=== PATIENT | male | born 1950 | race Caucasian/White ===

== ENCOUNTER 2017-11-13 11:43 | Inpatient (IN) | payer OTHER ==
[~2017-11-13] VITALS: Ht 175.3 cm; Wt 89.8 kg
[2017-11-13] MEDS ORDERED: DSS100 PO (12:06)
[2017-11-13] MEDS ORDERED: CALC25 PO (12:06)
[2017-11-13] MEDS ORDERED: GLIM2 PO (12:06)
[2017-11-13] MEDS ORDERED: LISI-662 PO (12:06)
[2017-11-13] MEDS ORDERED: TAMS0.4C32 PO (12:06)
[2017-11-13] MEDS ORDERED: FERR-89 PO (12:06)
[2017-11-13] MEDS ORDERED: CLON.2 PO (12:06)
[2017-11-13] MEDS ORDERED: CARV12 PO (12:06)
[2017-11-13] MEDS ORDERED: FURO40 PO (12:06)
[2017-11-13] MEDS ORDERED: SODI650T PO (12:06)
[2017-11-13] MEDS ORDERED: MINO2.5 PO (12:06)
[2017-11-13 12:24] LABS: BASOPHILS % (AUTO) 1.1 % (0.0-2.0); EOSINOPHILS % (AUTO) 1.9 % (1.0-6.0); HEMATOCRIT 34.2 % (41-53); HEMOGLOBIN 11.3 g/dL (13.5-17.5); LYMPHOCYTES # (AUTO) 1.2 K/uL (1.0-4.8); LYMPHOCYTES % (AUTO) 20.5 % (22.0-44.0); MEAN CORPUSCULAR HEMOGLOBIN 30.7 pg (26.0-34.0); MEAN CORPUSCULAR VOLUME 93 fL (80-100); MONOCYTES # (AUTO) 0.5 K/uL (0.1-1.0); MONOCYTES % (AUTO) 8.4 % (2.0-9.0); NEUTROPHILS % (AUTO) 68.1 % (40.0-70.0); PLATELET COUNT (AUTO) 170 K/uL (150-450); RED BLOOD CELL COUNT(AUTO) 3.68 MIL/uL (4.50-5.90)
[2017-11-13 12:34] LABS: PROTHROMBIN TIME 10.9 SEC (9.4-11.6)
[2017-11-13 12:45] LABS: CALCIUM, TOTAL 8.5 mg/dL (8.8-10.5); CREATININE 5.21 mg/dL (0.60-1.30); POTASSIUM 5.6 mmol/L (3.5-5.1)
[2017-11-13 12:51] LABS: ALBUMIN 3.6 g/dL (3.4-5.0); BILIRUBIN,TOTAL 0.6 mg/dL (0.1-1.0); TOTAL PROTEIN, SERUM 6.4 g/dL (6.4-8.2)
[2017-11-13] MEDS ORDERED: HydrALAZINE HCL 20 MG/ML VIAL IVP ONE (13:15)
[2017-11-13] MEDS ORDERED: LABETALOL HCL 5 MG/ML 20 ML VIAL IVP ONE ×2 (13:15→14:00)
[2017-11-13 13:34] LABS: AMPHET/METH SCREEN,URINE NEGATIVE (NEGATIVE); APPEARANCE,URINE CLEAR (CLEAR); BARBITURATE SCREEN, URINE NEGATIVE (NEGATIVE); BENZODIAZEPINES SCREEN,URINE NEGATIVE (NEGATIVE); BILIRUBIN,URINE NEGATIVE (NEGATIVE); CANNABINOID SCREEN,URINE NEGATIVE (NEGATIVE); COCAINE SCREEN,URINE NEGATIVE (NEGATIVE); GLUCOSE, URINE (UA) NEGATIVE (NEGATIVE); KETONES,URINE TRACE mg/dL (NEGATIVE); LEUKOCYTE ESTERASE ,URINE NEGATIVE (NEGATIVE); METHADONE SCREEN, URINE NEGATIVE (NEGATIVE); NITRATE,URINE NEGATIVE (NEGATIVE); OCCULT BLOOD,URINE TRACE (NEGATIVE); OPIATE SCREEN,URINE NEGATIVE (NEGATIVE); PH,URINE 6.5 (5.0-8.0); PHENCYCLIDINE SCREEN,URINE NEGATIVE (NEGATIVE); PROTEIN,URINE SEE CONFIRM (NEGATIVE); UROBILINOGEN,URINE 0.2 mg/dL (<=1.0)
[2017-11-13 13:52] LABS: SULFOSALICYLIC ACID,URINE 3+ (Negative)
[2017-11-13 13:54] LABS: BACTERIA,URINE None Seen /HPF (None Seen); RBC,URINE 0-2 /HPF (0-2)
[2017-11-13] MEDS ORDERED: FUROSEMIDE 40 MG/4 ML VIAL IVP ONE (14:00)
[2017-11-13 15:10] VITALS: BP 162/121
[2017-11-13 17:20] VITALS: BP 180/110
[2017-11-13] MEDS ORDERED: PNEUMOCOCCAL VACCINE POLYVALENT 0.5 ML VIAL [PPSV23] IM ONE (18:00)
[2017-11-13] MEDS ORDERED: ACETAMINOPHEN 325 MG TABLET PO PRN (19:15)
[2017-11-13] MEDS ORDERED: ZOLPIDEM TARTRATE 10 MG TABLET PO PRN (19:15)
[2017-11-13] MEDS ORDERED: IPRATROPIUM BROMIDE 0.5 MG/2.5 ML NEB SOLUTION NEB PRN (19:15)
[2017-11-13] MEDS ORDERED: MORPHINE SULFATE 2 MG/ML SYRINGE IVP PRN (19:15)
[2017-11-13] MEDS ORDERED: ONDANSETRON HCL 4 MG/2 ML VIAL IVP PRN (19:15)
[2017-11-13] MEDS ORDERED: MAGNESIUM HYDROXIDE SUSPENSION 30 ML UDCUP PO PRN (19:15)
[2017-11-13 20:00] VITALS: BP 174/120
[2017-11-13] MEDS: DOCUSATE SODIUM 100 MG CAPSULE PO SCH (20:22)
[2017-11-13] MEDS: MINOXIDIL 2.5 MG TABLET PO SCH (20:22)
[2017-11-13] MEDS: SODIUM BICARBONATE 650 MG TABLET PO SCH (20:22)
[2017-11-13] MEDS: CARVEDILOL 25 MG TABLET PO SCH (20:22)
[2017-11-13] MEDS: TAMSULOSIN HCL 0.4 MG CAPSULE PO SCH (20:22)
[2017-11-13] MEDS: BUMETANIDE 0.25 MG/ML 10 ML VIAL IVP SCH (20:23)
[2017-11-13] MEDS ORDERED: FUROSEMIDE 40 MG TABLET PO SCH (21:00)
[2017-11-13 21:30] VITALS: BP 148/116
[2017-11-13 22:58] VITALS: BP 160/120
[2017-11-13] MEDS: HydrALAZINE HCL 20 MG/ML VIAL IVP PRN (23:06)
[2017-11-13 23:25] VITALS: BP 140/110
[2017-11-14] VITALS (7 sets, daily range): BP systolic 130–160; BP diastolic 88–120
[2017-11-14] MEDS: DILTIAZEM HCL 30 MG TABLET PO SCH ×2 (02:08→06:03)
[2017-11-14] MEDS: DOCUSATE SODIUM 100 MG CAPSULE PO SCH ×2 (08:11→20:56)
[2017-11-14] MEDS: CALCITRIOL 0.25 MCG CAPSULE PO SCH (08:12)
[2017-11-14] MEDS: CARVEDILOL 25 MG TABLET PO SCH (08:12)
[2017-11-14] MEDS: SODIUM BICARBONATE 650 MG TABLET PO SCH ×3 (08:12→20:56)
[2017-11-14] MEDS: PANTOPRAZOLE SODIUM 40 MG/VIAL IVP SCH (08:12)
[2017-11-14] MEDS: GLIMEPIRIDE 2 MG TABLET PO SCH (08:12)
[2017-11-14] MEDS: MINOXIDIL 2.5 MG TABLET PO SCH ×2 (08:12→20:56)
[2017-11-14] MEDS ORDERED: LISINOPRIL 20 MG TABLET PO SCH (09:00)
[2017-11-14] MEDS ORDERED: DIGOXIN 250 MCG/ML 2 ML AMP IVP SCH (09:00)
[2017-11-14] MEDS ORDERED: FERROUS SULFATE 325 MG EC TABLET PO SCH (09:00)
[2017-11-14] MEDS ORDERED: SODIUM POLYSTYRENE SULFONATE 15 GM/60 ML SUSPENSION BOTTLE PO ONE (09:15)
[2017-11-14] MEDS ORDERED: LABETALOL HCL 5 MG/ML 20 ML VIAL IVP ONE ×2 (09:30→14:15)
[2017-11-14] MEDS ORDERED: APIXABAN 2.5 MG TABLET PO SCH (09:30)
[2017-11-14 09:34] LABS: BASOPHILS % (AUTO) 1.1 % (0.0-2.0); EOSINOPHILS % (AUTO) 2.7 % (1.0-6.0); HEMATOCRIT 32.4 % (41-53); HEMOGLOBIN 11.1 g/dL (13.5-17.5); LYMPHOCYTES # (AUTO) 0.8 K/uL (1.0-4.8); LYMPHOCYTES % (AUTO) 19.1 % (22.0-44.0); MEAN CORPUSCULAR HEMOGLOBIN 31.8 pg (26.0-34.0); MEAN CORPUSCULAR HGB CONC 34.2 G/dL (31.0-37.0); MEAN CORPUSCULAR VOLUME 93 fL (80-100); MONOCYTES # (AUTO) 0.3 K/uL (0.1-1.0); NEUTROPHILS % (AUTO) 70.1 % (40.0-70.0); PLATELET COUNT (AUTO) 150 K/uL (150-450); RED BLOOD CELL COUNT(AUTO) 3.49 MIL/uL (4.50-5.90); RED CELL DISTRIBUTION WIDTH 15.3 % (11.5-14.5)
[2017-11-14 09:40] LABS: CALCIUM, TOTAL 8.3 mg/dL (8.8-10.5); CREATININE 5.24 mg/dL (0.60-1.30); MAGNESIUM 2.4 mg/dL (1.80-2.40); POTASSIUM 5.5 mmol/L (3.5-5.1)
[2017-11-14] MEDS: BUMETANIDE 0.25 MG/ML 10 ML VIAL IVP SCH ×2 (09:53→21:20)
[2017-11-14] MEDS ORDERED: *CLINICAL-WARFARIN SODIUM DOSING CLINICAL ONE (10:15)
[2017-11-14] MEDS ORDERED: DIGOXIN 250 MCG/ML 2 ML AMP IVP ONE ×2 (10:30→14:15)
[2017-11-14] MEDS ORDERED: WARFARIN SODIUM-INR 2.0-3.0-RX DOSING PER PROTOCOL PO PRN (10:45)
[2017-11-14] MEDS: LABETALOL HCL 200 MG TABLET PO SCH ×4 (10:55→20:56)
[2017-11-14] MEDS ORDERED: DEXTROSE 50%-WATER 25 GM/50 ML SYRINGE IVP PRN (13:00)
[2017-11-14] MEDS ORDERED: CARV25 PO (13:07)
[2017-11-14] MEDS ORDERED: BUMETANIDE 0.25 MG/ML 4 ML VIAL IVP ONE (15:45)
[2017-11-14] MEDS ORDERED: WARFARIN SODIUM 5 MG TABLET PO SCH (17:00)
[2017-11-14 19:38] LABS: GLUCOMETER DEV NAME(LOC) 5S 1M; GLUCOSE,POINT OF CARE 75 MG/DL (70-110)
[2017-11-14] MEDS: TAMSULOSIN HCL 0.4 MG CAPSULE PO SCH (20:56)
[2017-11-14] MEDS: INSULIN ASPART 100 UNITS/ML - NON-FORMULARY SQ PRN (20:58)
[2017-11-15 00:23] VITALS: BP 120/56
[2017-11-15 00:58] LABS: GLUCOMETER DEV NAME(LOC) 5N 1N; GLUCOSE,POINT OF CARE 156 MG/DL (70-110)
[2017-11-15 05:20] VITALS: BP 112/80
[2017-11-15 06:25] VITALS: BP 110/85
[2017-11-15 06:44] LABS: BASOPHILS % (AUTO) 0.7 % (0.0-2.0); EOSINOPHILS % (AUTO) 3.3 % (1.0-6.0); HEMATOCRIT 27.9 % (41-53); HEMOGLOBIN 9.6 g/dL (13.5-17.5); LYMPHOCYTES # (AUTO) 1.1 K/uL (1.0-4.8); LYMPHOCYTES % (AUTO) 22.7 % (22.0-44.0); MEAN CORPUSCULAR HEMOGLOBIN 31.8 pg (26.0-34.0); MEAN CORPUSCULAR HGB CONC 34.5 G/dL (31.0-37.0); MEAN CORPUSCULAR VOLUME 92 fL (80-100); MONOCYTES # (AUTO) 0.5 K/uL (0.1-1.0); MONOCYTES % (AUTO) 10.3 % (2.0-9.0); PLATELET COUNT (AUTO) 142 K/uL (150-450); RED BLOOD CELL COUNT(AUTO) 3.03 MIL/uL (4.50-5.90); RED CELL DISTRIBUTION WIDTH 14.8 % (11.5-14.5)
[2017-11-15 06:51] LABS: CALCIUM, TOTAL 7.9 mg/dL (8.8-10.5); CREATININE 5.09 mg/dL (0.60-1.30); MAGNESIUM 2.2 mg/dL (1.80-2.40); POTASSIUM 4.5 mmol/L (3.5-5.1)
[2017-11-15 06:52] LABS: ALBUMIN 2.9 g/dL (3.4-5.0); BILIRUBIN,TOTAL 0.4 mg/dL (0.1-1.0); TOTAL PROTEIN, SERUM 5.2 g/dL (6.4-8.2)
[2017-11-15 07:26] LABS: INR 1.1 (0.9-1.1)
[2017-11-15 07:39] VITALS: BP 125/80
[2017-11-15 07:53] LABS: GLUCOMETER DEV NAME(LOC) 5S 1M; GLUCOSE,POINT OF CARE 71 MG/DL (70-110)
[2017-11-15] MEDS: SODIUM BICARBONATE 650 MG TABLET PO SCH ×3 (08:35→22:21)
[2017-11-15] MEDS: GLIMEPIRIDE 2 MG TABLET PO SCH (08:36)
[2017-11-15] MEDS: CALCITRIOL 0.25 MCG CAPSULE PO SCH (08:37)
[2017-11-15] MEDS: LABETALOL HCL 200 MG TABLET PO SCH ×4 (08:38→22:21)
[2017-11-15] MEDS: MINOXIDIL 2.5 MG TABLET PO SCH ×2 (08:38→22:21)
[2017-11-15] MEDS: FERROUS SULFATE 325 MG EC TABLET PO SCH (08:39)
[2017-11-15] MEDS: PANTOPRAZOLE SODIUM 40 MG/VIAL IVP SCH (08:39)
[2017-11-15] MEDS: DOCUSATE SODIUM 100 MG CAPSULE PO SCH ×2 (08:44→22:21)
[2017-11-15] MEDS: BUMETANIDE 0.25 MG/ML 10 ML VIAL IVP SCH ×2 (08:47→23:32)
[2017-11-15] MEDS ORDERED: DIGOXIN 250 MCG/ML 2 ML AMP IVP ONE (09:00)
[2017-11-15 12:37] LABS: GLUCOMETER DEV NAME(LOC) 5S 1M; GLUCOSE,POINT OF CARE 204 MG/DL (70-110)
[2017-11-15] MEDS ORDERED: WARFARIN SODIUM 5 MG TABLET PO SCH (17:00)
[2017-11-15 19:47] VITALS: BP 125/82
[2017-11-15 21:00] VITALS: BP 132/74
[2017-11-15] MEDS ORDERED: ZOLPIDEM TARTRATE 5 MG TABLET PO PRN (22:15)
[2017-11-15] MEDS: TAMSULOSIN HCL 0.4 MG CAPSULE PO SCH (22:21)
[2017-11-15 22:32] LABS: GLUCOSE,POINT OF CARE 142 MG/DL (70-110)
[2017-11-16] VITALS (8 sets, daily range): BP systolic 97–119; BP diastolic 49–76
[2017-11-16 05:18] LABS: INR 1.1 (0.9-1.1)
[2017-11-16 08:08] LABS: GLUCOMETER DEV NAME(LOC) 5S 1M; GLUCOSE,POINT OF CARE 118 MG/DL (70-110)
[2017-11-16] MEDS: PANTOPRAZOLE SODIUM 40 MG/VIAL IVP SCH (08:09)
[2017-11-16] MEDS: LABETALOL HCL 200 MG TABLET PO SCH ×4 (08:10→23:00)
[2017-11-16] MEDS: DOCUSATE SODIUM 100 MG CAPSULE PO SCH ×2 (08:10→21:04)
[2017-11-16] MEDS: CALCITRIOL 0.25 MCG CAPSULE PO SCH (08:10)
[2017-11-16] MEDS: FERROUS SULFATE 325 MG EC TABLET PO SCH (08:10)
[2017-11-16] MEDS: SODIUM BICARBONATE 650 MG TABLET PO SCH ×3 (08:11→21:04)
[2017-11-16] MEDS: MINOXIDIL 2.5 MG TABLET PO SCH ×2 (08:11→23:00)
[2017-11-16 08:17] LABS: GLUCOSE,POINT OF CARE 96 MG/DL (70-110)
[2017-11-16] MEDS: BUMETANIDE 0.25 MG/ML 10 ML VIAL IVP SCH (09:58)
[2017-11-16] MEDS ORDERED: HEPARIN SODIUM,PORCINE 1,000 UNITS/ML VIAL ONE (11:24)
[2017-11-16] MEDS: GLIMEPIRIDE 2 MG TABLET PO SCH (12:36)
[2017-11-16] MEDS ORDERED: SODIUM CHLORIDE 0.9% 1,000 ML IV ONE (12:40)
[2017-11-16 15:23] LABS: GLUCOSE,POINT OF CARE 167 MG/DL (70-110)
[2017-11-16] MEDS: AMIODARONE HCL 200 MG TABLET PO SCH ×2 (15:25→21:04)
[2017-11-16] MEDS: INSULIN ASPART 100 UNITS/ML - NON-FORMULARY SQ PRN (15:27)
[2017-11-16] MEDS ORDERED: ALBUMIN HUMAN 25%-12.5GM/50ML IV BOTTLE IV ONE (17:07)
[2017-11-16] MEDS ORDERED: MANNITOL 25%-12.5 GM/50 ML VIAL IVP ONE (17:07)
[2017-11-16] MEDS ORDERED: HEPARIN SODIUM,PORCINE 1,000 UNITS/ML VIAL IVP ONE (17:07)
[2017-11-16 17:59] LABS: GLUCOSE,POINT OF CARE 111 MG/DL (70-110)
[2017-11-16] MEDS ORDERED: WARFARIN SODIUM 5 MG TABLET PO ONE (21:00)
[2017-11-16] MEDS: TAMSULOSIN HCL 0.4 MG CAPSULE PO SCH (21:04)
[2017-11-17 04:23] VITALS: BP 102/59
[2017-11-17] MEDS ORDERED: SODIUM CHLORIDE 0.9% 1,000 ML IV ONE ×2 (06:45)
[2017-11-17 07:07] LABS: INR 1.1 (0.9-1.1); PROTHROMBIN TIME 11.1 SEC (9.4-11.6)
[2017-11-17 07:13] LABS: CALCIUM, TOTAL 7.7 mg/dL (8.8-10.5); CREATININE 4.44 mg/dL (0.60-1.30); POTASSIUM 4.1 mmol/L (3.5-5.1)
[2017-11-17 07:22] LABS: BASOPHILS % (AUTO) 0.7 % (0.0-2.0); EOSINOPHILS % (AUTO) 3.2 % (1.0-6.0); HEMATOCRIT 27.2 % (41-53); HEMOGLOBIN 9.3 g/dL (13.5-17.5); LYMPHOCYTES # (AUTO) 0.9 K/uL (1.0-4.8); LYMPHOCYTES % (AUTO) 16.6 % (22.0-44.0); MEAN CORPUSCULAR HEMOGLOBIN 31.4 pg (26.0-34.0); MEAN CORPUSCULAR HGB CONC 34.2 G/dL (31.0-37.0); MEAN CORPUSCULAR VOLUME 92 fL (80-100); MONOCYTES # (AUTO) 0.6 K/uL (0.1-1.0); MONOCYTES % (AUTO) 11.6 % (2.0-9.0); NEUTROPHILS # (AUTO) 3.6 K/uL (1.8-7.7); NEUTROPHILS % (AUTO) 67.9 % (40.0-70.0); PLATELET COUNT (AUTO) 127 K/uL (150-450); RED BLOOD CELL COUNT(AUTO) 2.95 MIL/uL (4.50-5.90); RED CELL DISTRIBUTION WIDTH 14.6 % (11.5-14.5)
[2017-11-17 07:41] VITALS: BP 138/68
[2017-11-17] MEDS: EPOETIN ALFA 10,000 UNITS/ML VIAL SQ SCH (09:00)
[2017-11-17] MEDS: LISINOPRIL 10 MG TABLET PO SCH (09:00)
[2017-11-17 11:22] VITALS: BP 122/83
[2017-11-17] MEDS: FERROUS SULFATE 325 MG EC TABLET PO SCH (11:41)
[2017-11-17] MEDS: CALCITRIOL 0.25 MCG CAPSULE PO SCH (11:41)
[2017-11-17] MEDS: SODIUM BICARBONATE 650 MG TABLET PO SCH ×3 (11:42→20:34)
[2017-11-17] MEDS: CARVEDILOL 25 MG TABLET PO SCH ×2 (11:42→20:34)
[2017-11-17] MEDS: PANTOPRAZOLE SODIUM 40 MG/VIAL IVP SCH (11:43)
[2017-11-17] MEDS: DOCUSATE SODIUM 100 MG CAPSULE PO SCH ×2 (11:43→20:34)
[2017-11-17] MEDS: MINOXIDIL 2.5 MG TABLET PO SCH ×2 (11:44→20:34)
[2017-11-17] MEDS: AMIODARONE HCL 200 MG TABLET PO SCH ×2 (11:44→20:45)
[2017-11-17 14:58] LABS: GLUCOMETER DEV NAME(LOC) 5N 2S; GLUCOSE,POINT OF CARE 55 MG/DL (70-110)
[2017-11-17 14:58] LABS: GLUCOMETER DEV NAME(LOC) 5N 2S; GLUCOSE,POINT OF CARE 113 MG/DL (70-110)
[2017-11-17 14:58] LABS: GLUCOMETER DEV NAME(LOC) 5N 2S; GLUCOSE,POINT OF CARE 94 MG/DL (70-110)
[2017-11-17 15:00] VITALS: BP 94/56
[2017-11-17] MEDS ORDERED: HEPARIN SODIUM,PORCINE 1,000 UNITS/ML VIAL ONE ×2 (16:44→17:20)
[2017-11-17] MEDS ORDERED: WARFARIN SODIUM 7.5 MG TABLET PO ONE (17:00)
[2017-11-17] MEDS ORDERED: MANNITOL 25%-12.5 GM/50 ML VIAL IVP ONE (17:17)
[2017-11-17] MEDS: INSULIN ASPART 100 UNITS/ML - NON-FORMULARY SQ PRN (18:24)
[2017-11-17 20:25] VITALS: BP 104/53
[2017-11-17] MEDS: TAMSULOSIN HCL 0.4 MG CAPSULE PO SCH (20:34)
[2017-11-18] VITALS (7 sets, daily range): BP systolic 99–113; BP diastolic 55–75
[2017-11-18 05:47] LABS: BASOPHILS % (AUTO) 0.6 % (0.0-2.0); EOSINOPHILS % (AUTO) 3.9 % (1.0-6.0); HEMATOCRIT 26.3 % (41-53); HEMOGLOBIN 9.4 g/dL (13.5-17.5); LYMPHOCYTES # (AUTO) 1.2 K/uL (1.0-4.8); MEAN CORPUSCULAR HEMOGLOBIN 32.8 pg (26.0-34.0); MEAN CORPUSCULAR HGB CONC 35.7 G/dL (31.0-37.0); MEAN CORPUSCULAR VOLUME 92 fL (80-100); MONOCYTES # (AUTO) 0.7 K/uL (0.1-1.0); NEUTROPHILS # (AUTO) 3.4 K/uL (1.8-7.7); NEUTROPHILS % (AUTO) 60.5 % (40.0-70.0); PLATELET COUNT (AUTO) 118 K/uL (150-450); RED BLOOD CELL COUNT(AUTO) 2.87 MIL/uL (4.50-5.90); RED CELL DISTRIBUTION WIDTH 14.9 % (11.5-14.5)
[2017-11-18 05:56] LABS: INR 1.1 (0.9-1.1); PROTHROMBIN TIME 11.9 SEC (9.4-11.6)
[2017-11-18 06:15] LABS: ALBUMIN 2.9 g/dL (3.4-5.0); BILIRUBIN,TOTAL 0.4 mg/dL (0.1-1.0); CALCIUM, TOTAL 7.7 mg/dL (8.8-10.5); CREATININE 4.11 mg/dL (0.60-1.30); MAGNESIUM 1.7 mg/dL (1.80-2.40); POTASSIUM 4.8 mmol/L (3.5-5.1); TOTAL PROTEIN, SERUM 5.3 g/dL (6.4-8.2)
[2017-11-18] MEDS ORDERED: HEPARIN SODIUM 1000 UNITS/NS 0 ML ONE (08:42)
[2017-11-18] MEDS ORDERED: LIDOCAINE HCL/PF 1% 30 ML VIAL ONE (08:43)
[2017-11-18] MEDS ORDERED: HEPARIN SODIUM,PORCINE 1,000 UNITS/ML 10 ML VIAL ONE (08:43)
[2017-11-18] MEDS: FERROUS SULFATE 325 MG EC TABLET PO SCH (11:54)
[2017-11-18] MEDS: AMIODARONE HCL 200 MG TABLET PO SCH ×2 (11:54→21:52)
[2017-11-18] MEDS: CARVEDILOL 25 MG TABLET PO SCH ×2 (11:55→21:52)
[2017-11-18] MEDS: PANTOPRAZOLE SODIUM 40 MG/VIAL IVP SCH (11:55)
[2017-11-18] MEDS: LISINOPRIL 10 MG TABLET PO SCH (11:55)
[2017-11-18] MEDS: DOCUSATE SODIUM 100 MG CAPSULE PO SCH ×2 (11:55→21:52)
[2017-11-18] MEDS: CALCITRIOL 0.25 MCG CAPSULE PO SCH (12:15)
[2017-11-18] MEDS ORDERED: WARFARIN SODIUM 7.5 MG TABLET PO ONE (17:00)
[2017-11-18] MEDS ORDERED: APIXABAN 5 MG TABLET PO SCH (21:00)
[2017-11-18] MEDS: TAMSULOSIN HCL 0.4 MG CAPSULE PO SCH (21:52)
[2017-11-19 04:12] VITALS: BP 110/52
[2017-11-19 06:52] LABS: BASOPHILS % (AUTO) 1.3 % (0.0-2.0); EOSINOPHILS % (AUTO) 5.3 % (1.0-6.0); HEMOGLOBIN 9.8 g/dL (13.5-17.5); LYMPHOCYTES # (AUTO) 1.3 K/uL (1.0-4.8); LYMPHOCYTES % (AUTO) 22.4 % (22.0-44.0); MEAN CORPUSCULAR HEMOGLOBIN 31.3 pg (26.0-34.0); MEAN CORPUSCULAR HGB CONC 33.9 G/dL (31.0-37.0); MEAN CORPUSCULAR VOLUME 92 fL (80-100); MONOCYTES # (AUTO) 0.7 K/uL (0.1-1.0); MONOCYTES % (AUTO) 12.7 % (2.0-9.0); NEUTROPHILS # (AUTO) 3.3 K/uL (1.8-7.7); NEUTROPHILS % (AUTO) 58.3 % (40.0-70.0); PLATELET COUNT (AUTO) 123 K/uL (150-450); RED BLOOD CELL COUNT(AUTO) 3.14 MIL/uL (4.50-5.90); RED CELL DISTRIBUTION WIDTH 14.8 % (11.5-14.5)
[2017-11-19 06:56] LABS: INR 1.2 (0.9-1.1); PROTHROMBIN TIME 12.9 SEC (9.4-11.6)
[2017-11-19 07:06] VITALS: BP 112/64
[2017-11-19 07:20] LABS: CREATININE 3.91 mg/dL (0.60-1.30); POTASSIUM 4.8 mmol/L (3.5-5.1)
[2017-11-19 07:21] LABS: ALBUMIN 2.9 g/dL (3.4-5.0); BILIRUBIN,TOTAL 0.3 mg/dL (0.1-1.0); CALCIUM, TOTAL 7.8 mg/dL (8.8-10.5); MAGNESIUM 1.8 mg/dL (1.80-2.40); TOTAL PROTEIN, SERUM 5.4 g/dL (6.4-8.2)
[2017-11-19] MEDS: CARVEDILOL 25 MG TABLET PO SCH ×2 (09:00→19:52)
[2017-11-19] MEDS: LISINOPRIL 10 MG TABLET PO SCH (09:00)
[2017-11-19] MEDS ORDERED: HEPARIN SODIUM,PORCINE 1,000 UNITS/ML 10 ML VIAL ONE (09:14)
[2017-11-19] MEDS ORDERED: HEPARIN SODIUM 1000 UNITS/NS 500 ML ONE (09:14)
[2017-11-19] MEDS ORDERED: LIDOCAINE HCL/PF 1% 30 ML VIAL ONE (09:14)
[2017-11-19] MEDS: DOCUSATE SODIUM 100 MG CAPSULE PO SCH ×2 (09:23→19:52)
[2017-11-19] MEDS: FERROUS SULFATE 325 MG EC TABLET PO SCH (09:24)
[2017-11-19] MEDS: CALCITRIOL 0.25 MCG CAPSULE PO SCH (09:24)
[2017-11-19] MEDS: AMIODARONE HCL 200 MG TABLET PO SCH ×2 (09:25→19:52)
[2017-11-19] MEDS: PANTOPRAZOLE SODIUM 40 MG/VIAL IVP SCH (09:26)
[2017-11-19] MEDS: EPOETIN ALFA 10,000 UNITS/ML VIAL SQ SCH (09:27)
[2017-11-19] MEDS ORDERED: MIDAZOLAM HCL 2 MG/2 ML VIAL ONE ×2 (09:33→10:45)
[2017-11-19] MEDS ORDERED: FentaNYL CITRATE-PF 100 MCG/2 ML VIAL ONE (09:33)
[2017-11-19] MEDS ORDERED: CeFAZolin 1 GM/DEXTROSE 50 ML IV ONE ×2 (09:43→10:10)
[2017-11-19] MEDS ORDERED: ONDANSETRON HCL 4 MG/2 ML VIAL ONE (10:25)
[2017-11-19] MEDS ORDERED: ONDANSETRON HCL 4 MG/2 ML VIAL IVP ONE (10:27)
[2017-11-19] MEDS ORDERED: MIDAZOLAM HCL 2 MG/2 ML VIAL IVP ONE (10:47)
[2017-11-19] MEDS ORDERED: FentaNYL CITRATE-PF 100 MCG/2 ML VIAL IVP ONE (10:47)
[2017-11-19 11:45] VITALS: BP 133/95
[2017-11-19] MEDS: HYDROCODONE/ACETAMINOPHEN 5-325 MG TABLET PO PRN ×2 (14:26→21:41)
[2017-11-19 15:18] VITALS: BP 139/73
[2017-11-19] MEDS: INSULIN ASPART 100 UNITS/ML - NON-FORMULARY SQ PRN ×2 (17:54→21:45)
[2017-11-19] MEDS ORDERED: HEPARIN SODIUM,PORCINE 1,000 UNITS/ML VIAL IVP ONE (18:19)
[2017-11-19 19:48] VITALS: BP 100/59
[2017-11-19] MEDS: TAMSULOSIN HCL 0.4 MG CAPSULE PO SCH (19:52)
[2017-11-19 23:57] VITALS: BP 103/68
[2017-11-20 04:27] VITALS: BP 111/69
[2017-11-20 06:41] LABS: INR 1.2 (0.9-1.1); PROTHROMBIN TIME 12.3 SEC (9.4-11.6)
[2017-11-20] MEDS ORDERED: SODIUM CHLORIDE 0.9% 1,000 ML IV ONE ×2 (06:59)
[2017-11-20 07:06] VITALS: BP 134/93
[2017-11-20] MEDS: DOCUSATE SODIUM 100 MG CAPSULE PO SCH ×2 (09:00→19:56)
[2017-11-20] MEDS ORDERED: APIXABAN 2.5 MG TABLET PO SCH ×2 (09:00)
[2017-11-20] MEDS: PANTOPRAZOLE SODIUM 40 MG/VIAL IVP SCH (09:14)
[2017-11-20] MEDS: CALCITRIOL 0.25 MCG CAPSULE PO SCH (09:14)
[2017-11-20] MEDS: FERROUS SULFATE 325 MG EC TABLET PO SCH (09:14)
[2017-11-20] MEDS: CARVEDILOL 25 MG TABLET PO SCH ×2 (09:17→19:56)
[2017-11-20] MEDS: AMIODARONE HCL 200 MG TABLET PO SCH ×2 (09:18→19:56)
[2017-11-20] MEDS: LISINOPRIL 10 MG TABLET PO SCH (10:21)
[2017-11-20] MEDS: APIXABAN 5 MG TABLET PO SCH ×2 (10:21→19:56)
[2017-11-20 11:42] VITALS: BP 159/95
[2017-11-20] MEDS: INSULIN ASPART 100 UNITS/ML - NON-FORMULARY SQ PRN ×2 (12:12→20:00)
[2017-11-20 15:08] LABS: GLUCOMETER DEV NAME(LOC) 5S 2N; GLUCOSE,POINT OF CARE 97 MG/DL (70-110)
[2017-11-20 15:08] LABS: GLUCOMETER DEV NAME(LOC) 5N 2S; GLUCOSE,POINT OF CARE 216 MG/DL (70-110)
[2017-11-20 15:08] LABS: GLUCOMETER DEV NAME(LOC) 5S 2N; GLUCOSE,POINT OF CARE 112 MG/DL (70-110)
[2017-11-20 15:08] LABS: GLUCOMETER DEV NAME(LOC) 5S 2N; GLUCOSE,POINT OF CARE 126 MG/DL (70-110)
[2017-11-20 15:09] LABS: GLUCOMETER DEV NAME(LOC) 5N 2S; GLUCOSE,POINT OF CARE 144 MG/DL (70-110)
[2017-11-20 15:09] LABS: GLUCOMETER DEV NAME(LOC) 5S 2N; GLUCOSE,POINT OF CARE 99 MG/DL (70-110)
[2017-11-20 15:09] LABS: GLUCOMETER DEV NAME(LOC) 5N 2S; GLUCOSE,POINT OF CARE 147 MG/DL (70-110)
[2017-11-20 15:09] LABS: GLUCOMETER DEV NAME(LOC) 5N 2S; GLUCOSE,POINT OF CARE 117 MG/DL (70-110)
[2017-11-20 15:09] LABS: GLUCOMETER DEV NAME(LOC) 5S 2N; GLUCOSE,POINT OF CARE 222 MG/DL (70-110)
[2017-11-20 15:09] LABS: GLUCOMETER DEV NAME(LOC) 5N 2S; GLUCOSE,POINT OF CARE 144 MG/DL (70-110)
[2017-11-20 15:09] LABS: GLUCOMETER DEV NAME(LOC) 5N 2S; GLUCOSE,POINT OF CARE 151 MG/DL (70-110)
[2017-11-20 15:09] LABS: GLUCOMETER DEV NAME(LOC) 5N 2S; GLUCOSE,POINT OF CARE 213 MG/DL (70-110)
[2017-11-20 15:09] LABS: GLUCOMETER DEV NAME(LOC) 5N 2S; GLUCOSE,POINT OF CARE 132 MG/DL (70-110)
[2017-11-20 15:09] LABS: GLUCOMETER DEV NAME(LOC) 5N 2S; GLUCOSE,POINT OF CARE 192 MG/DL (70-110)
[2017-11-20 16:00] VITALS: BP 124/73
[2017-11-20] MEDS ORDERED: IOVERSOL 350 MG/ML 100 ML VIAL ONE (16:06)
[2017-11-20 19:07] LABS: GLUCOMETER DEV NAME(LOC) 5N 2S; GLUCOSE,POINT OF CARE 137 MG/DL (70-110)
[2017-11-20 19:45] VITALS: BP 129/62
[2017-11-20] MEDS: TAMSULOSIN HCL 0.4 MG CAPSULE PO SCH (19:56)
[2017-11-20 23:14] VITALS: BP 124/78
[2017-11-21] MEDS: HYDROCODONE/ACETAMINOPHEN 5-325 MG TABLET PO PRN (02:12)
[2017-11-21 04:48] VITALS: BP 132/74
[2017-11-21 05:38] LABS: EOSINOPHILS % (AUTO) 4.3 % (1.0-6.0); HEMATOCRIT 29.3 % (41-53); LYMPHOCYTES # (AUTO) 1.5 K/uL (1.0-4.8); MEAN CORPUSCULAR HEMOGLOBIN 31.4 pg (26.0-34.0); MEAN CORPUSCULAR HGB CONC 34.2 G/dL (31.0-37.0); MEAN CORPUSCULAR VOLUME 92 fL (80-100); MONOCYTES # (AUTO) 0.6 K/uL (0.1-1.0); MONOCYTES % (AUTO) 9.9 % (2.0-9.0); NEUTROPHILS # (AUTO) 3.8 K/uL (1.8-7.7); NEUTROPHILS % (AUTO) 60.8 % (40.0-70.0); PLATELET COUNT (AUTO) 139 K/uL (150-450); RED BLOOD CELL COUNT(AUTO) 3.19 MIL/uL (4.50-5.90); RED CELL DISTRIBUTION WIDTH 14.5 % (11.5-14.5)
[2017-11-21 05:48] LABS: INR 1.1 (0.9-1.1); PROTHROMBIN TIME 11.9 SEC (9.4-11.6)
[2017-11-21 05:53] LABS: BILIRUBIN,TOTAL 0.3 mg/dL (0.1-1.0); CALCIUM, TOTAL 8.2 mg/dL (8.8-10.5); CREATININE 4.96 mg/dL (0.60-1.30); POTASSIUM 5.8 mmol/L (3.5-5.1); TOTAL PROTEIN, SERUM 5.5 g/dL (6.4-8.2)
[2017-11-21 06:59] VITALS: BP 124/65
[2017-11-21] MEDS: FERROUS SULFATE 325 MG EC TABLET PO SCH (08:30)
[2017-11-21] MEDS: DOCUSATE SODIUM 100 MG CAPSULE PO SCH ×2 (08:30→21:00)
[2017-11-21] MEDS: PANTOPRAZOLE SODIUM 40 MG/VIAL IVP SCH (08:30)
[2017-11-21] MEDS: APIXABAN 5 MG TABLET PO SCH (08:30)
[2017-11-21] MEDS: AMIODARONE HCL 200 MG TABLET PO SCH ×2 (08:30→21:00)
[2017-11-21] MEDS: CALCITRIOL 0.25 MCG CAPSULE PO SCH (08:31)
[2017-11-21] MEDS: EPOETIN ALFA 10,000 UNITS/ML VIAL SQ SCH (08:33)
[2017-11-21] MEDS: CARVEDILOL 25 MG TABLET PO SCH ×2 (09:00→21:00)
[2017-11-21] MEDS: LISINOPRIL 10 MG TABLET PO SCH (09:00)
[2017-11-21 10:59] VITALS: BP 118/63
[2017-11-21] MEDS ORDERED: BUMETANIDE 0.25 MG/ML 10 ML VIAL IVP ONE (11:30)
[2017-11-21 12:02] LABS: GLUCOMETER DEV NAME(LOC) 5N 2S; GLUCOSE,POINT OF CARE 125 MG/DL (70-110)
[2017-11-21 12:03] LABS: GLUCOMETER DEV NAME(LOC) 5N 2S; GLUCOSE,POINT OF CARE 135 MG/DL (70-110)
[2017-11-21] MEDS ORDERED: SODIUM CHLORIDE 0.9% 2,000 ML IV ONE (12:49)
[2017-11-21 15:22] VITALS: BP 108/63
[2017-11-21] MEDS ORDERED: HEPARIN SODIUM,PORCINE 1,000 UNITS/ML VIAL IVP ONE ×2 (16:45)
[2017-11-21] MEDS: INSULIN ASPART 100 UNITS/ML - NON-FORMULARY SQ PRN ×2 (17:54→21:05)
[2017-11-21] MEDS ORDERED: HEPARIN SODIUM,PORCINE 5,000 UNITS/ML VIAL SQ ONE (17:54)
[2017-11-21 19:22] VITALS: BP 129/71
[2017-11-21] MEDS: TAMSULOSIN HCL 0.4 MG CAPSULE PO SCH (21:00)
[2017-11-21 23:41] VITALS: BP 127/76
[2017-11-22] MEDS: HYDROCODONE/ACETAMINOPHEN 5-325 MG TABLET PO PRN (01:01)
[2017-11-22 05:02] VITALS: BP 132/72
[2017-11-22 07:19] LABS: BASOPHILS % (AUTO) 1.1 % (0.0-2.0); EOSINOPHILS % (AUTO) 4.9 % (1.0-6.0); HEMATOCRIT 30.5 % (41-53); HEMOGLOBIN 10.3 g/dL (13.5-17.5); LYMPHOCYTES # (AUTO) 1.6 K/uL (1.0-4.8); LYMPHOCYTES % (AUTO) 31.4 % (22.0-44.0); MEAN CORPUSCULAR HEMOGLOBIN 31.2 pg (26.0-34.0); MEAN CORPUSCULAR HGB CONC 33.9 G/dL (31.0-37.0); MEAN CORPUSCULAR VOLUME 92 fL (80-100); MONOCYTES # (AUTO) 0.6 K/uL (0.1-1.0); NEUTROPHILS # (AUTO) 2.6 K/uL (1.8-7.7); NEUTROPHILS % (AUTO) 50.6 % (40.0-70.0); PLATELET COUNT (AUTO) 165 K/uL (150-450); RED BLOOD CELL COUNT(AUTO) 3.31 MIL/uL (4.50-5.90); RED CELL DISTRIBUTION WIDTH 14.2 % (11.5-14.5)
[2017-11-22 07:24] LABS: INR 1.1 (0.9-1.1); PROTHROMBIN TIME 11.1 SEC (9.4-11.6)
[2017-11-22 07:31] VITALS: BP 145/97
[2017-11-22 07:40] LABS: ALBUMIN 2.8 g/dL (3.4-5.0); BILIRUBIN,TOTAL 0.3 mg/dL (0.1-1.0); CALCIUM, TOTAL 8.1 mg/dL (8.8-10.5); CREATININE 4.2 mg/dL (0.60-1.30); TOTAL PROTEIN, SERUM 5.6 g/dL (6.4-8.2)
[2017-11-22] MEDS: FERROUS SULFATE 325 MG EC TABLET PO SCH (08:26)
[2017-11-22] MEDS: PANTOPRAZOLE SODIUM 40 MG/VIAL IVP SCH (08:27)
[2017-11-22] MEDS: CARVEDILOL 25 MG TABLET PO SCH ×2 (08:27→20:12)
[2017-11-22] MEDS: DOCUSATE SODIUM 100 MG CAPSULE PO SCH ×2 (08:27→20:12)
[2017-11-22] MEDS: LISINOPRIL 10 MG TABLET PO SCH (08:28)
[2017-11-22] MEDS: CALCITRIOL 0.25 MCG CAPSULE PO SCH (08:28)
[2017-11-22] MEDS: AMIODARONE HCL 200 MG TABLET PO SCH ×2 (08:28→20:12)
[2017-11-22 11:26] VITALS: BP 138/93
[2017-11-22 15:58] VITALS: BP 143/73
[2017-11-22] MEDS: INSULIN ASPART 100 UNITS/ML - NON-FORMULARY SQ PRN ×2 (17:52→21:33)
[2017-11-22] MEDS ORDERED: HEPARIN SODIUM,PORCINE 1,000 UNITS/ML VIAL IVP ONE (17:57)
[2017-11-22 19:14] VITALS: BP 147/87
[2017-11-22] MEDS: TAMSULOSIN HCL 0.4 MG CAPSULE PO SCH (20:12)
[2017-11-22 23:44] VITALS: BP 134/79
[2017-11-23] VITALS (7 sets, daily range): BP systolic 106–147; BP diastolic 72–94
[2017-11-23 06:09] LABS: EOSINOPHILS % (AUTO) 4.4 % (1.0-6.0); HEMATOCRIT 30.1 % (41-53); HEMOGLOBIN 10.3 g/dL (13.5-17.5); LYMPHOCYTES # (AUTO) 1.7 K/uL (1.0-4.8); LYMPHOCYTES % (AUTO) 29.5 % (22.0-44.0); MEAN CORPUSCULAR HEMOGLOBIN 31.3 pg (26.0-34.0); MEAN CORPUSCULAR HGB CONC 34.1 G/dL (31.0-37.0); MEAN CORPUSCULAR VOLUME 92 fL (80-100); MONOCYTES # (AUTO) 0.7 K/uL (0.1-1.0); MONOCYTES % (AUTO) 11.8 % (2.0-9.0); NEUTROPHILS # (AUTO) 3.1 K/uL (1.8-7.7); NEUTROPHILS % (AUTO) 53.3 % (40.0-70.0); PLATELET COUNT (AUTO) 170 K/uL (150-450); RED BLOOD CELL COUNT(AUTO) 3.28 MIL/uL (4.50-5.90); RED CELL DISTRIBUTION WIDTH 14.9 % (11.5-14.5)
[2017-11-23] MEDS: INSULIN ASPART 100 UNITS/ML - NON-FORMULARY SQ PRN ×3 (06:11→21:12)
[2017-11-23 06:21] LABS: BILIRUBIN,TOTAL 0.3 mg/dL (0.1-1.0); CALCIUM, TOTAL 8.1 mg/dL (8.8-10.5); CREATININE 3.46 mg/dL (0.60-1.30); MAGNESIUM 1.9 mg/dL (1.80-2.40); POTASSIUM 4.2 mmol/L (3.5-5.1); TOTAL PROTEIN, SERUM 5.7 g/dL (6.4-8.2)
[2017-11-23] MEDS: DOCUSATE SODIUM 100 MG CAPSULE PO SCH ×2 (08:12→21:10)
[2017-11-23] MEDS: PANTOPRAZOLE SODIUM 40 MG/VIAL IVP SCH (08:12)
[2017-11-23] MEDS: CARVEDILOL 12.5 MG TABLET PO SCH ×2 (08:12→21:10)
[2017-11-23] MEDS: FERROUS SULFATE 325 MG EC TABLET PO SCH (08:14)
[2017-11-23] MEDS: LISINOPRIL 10 MG TABLET PO SCH (09:50)
[2017-11-23 12:08] LABS: GLUCOMETER DEV NAME(LOC) 5S 1M; GLUCOSE,POINT OF CARE 128 MG/DL (70-110)
[2017-11-23 12:12] LABS: GLUCOMETER DEV NAME(LOC) 5S 1M; GLUCOSE,POINT OF CARE 151 MG/DL (70-110)
[2017-11-23] MEDS: CALCITRIOL 0.25 MCG CAPSULE PO SCH (13:59)
[2017-11-23] MEDS ORDERED: HEPARIN SODIUM,PORCINE 1,000 UNITS/ML VIAL IVP ONE (17:57)
[2017-11-23] MEDS: TAMSULOSIN HCL 0.4 MG CAPSULE PO SCH (21:10)
[2017-11-24 01:17] LABS: GLUCOMETER DEV NAME(LOC) 5N 1N; GLUCOSE,POINT OF CARE 182 MG/DL (70-110)
[2017-11-24 01:17] LABS: GLUCOMETER DEV NAME(LOC) 5N 1N; GLUCOSE,POINT OF CARE 161 MG/DL (70-110)
[2017-11-24 04:03] VITALS: BP 132/79
[2017-11-24] MEDS: INSULIN ASPART 100 UNITS/ML - NON-FORMULARY SQ PRN ×2 (06:02→15:29)
[2017-11-24 07:33] VITALS: BP 140/97
[2017-11-24] MEDS: FERROUS SULFATE 325 MG EC TABLET PO SCH (08:00)
[2017-11-24] MEDS: LISINOPRIL 10 MG TABLET PO SCH (08:27)
[2017-11-24] MEDS: CARVEDILOL 12.5 MG TABLET PO SCH ×2 (08:27→20:33)
[2017-11-24 08:42] LABS: GLUCOMETER DEV NAME(LOC) 5S 2N; GLUCOSE,POINT OF CARE 220 MG/DL (70-110)
[2017-11-24] MEDS: EPOETIN ALFA 10,000 UNITS/ML VIAL SQ SCH (09:43)
[2017-11-24] MEDS: PANTOPRAZOLE SODIUM 40 MG/VIAL IVP SCH (09:44)
[2017-11-24] MEDS: CALCITRIOL 0.25 MCG CAPSULE PO SCH (09:44)
[2017-11-24] MEDS: DOCUSATE SODIUM 100 MG CAPSULE PO SCH ×2 (09:44→20:33)
[2017-11-24 10:39] LABS: BASOPHILS % (AUTO) 1.2 % (0.0-2.0); EOSINOPHILS % (AUTO) 4.2 % (1.0-6.0); HEMATOCRIT 33.1 % (41-53); LYMPHOCYTES # (AUTO) 1.3 K/uL (1.0-4.8); LYMPHOCYTES % (AUTO) 23.9 % (22.0-44.0); MEAN CORPUSCULAR HEMOGLOBIN 30.9 pg (26.0-34.0); MEAN CORPUSCULAR HGB CONC 33.4 G/dL (31.0-37.0); MEAN CORPUSCULAR VOLUME 93 fL (80-100); MONOCYTES # (AUTO) 0.7 K/uL (0.1-1.0); MONOCYTES % (AUTO) 12.1 % (2.0-9.0); NEUTROPHILS # (AUTO) 3.2 K/uL (1.8-7.7); NEUTROPHILS % (AUTO) 58.6 % (40.0-70.0); PLATELET COUNT (AUTO) 189 K/uL (150-450); RED BLOOD CELL COUNT(AUTO) 3.58 MIL/uL (4.50-5.90); RED CELL DISTRIBUTION WIDTH 14.8 % (11.5-14.5)
[2017-11-24] MEDS ORDERED: SODIUM CHLORIDE 0.9% 1,000 ML IV ONE ×3 (11:00→11:47)
[2017-11-24 11:11] LABS: ALBUMIN 3.1 g/dL (3.4-5.0); BILIRUBIN,TOTAL 0.3 mg/dL (0.1-1.0); CALCIUM, TOTAL 8.4 mg/dL (8.8-10.5); CREATININE 3.77 mg/dL (0.60-1.30); MAGNESIUM 1.9 mg/dL (1.80-2.40); POTASSIUM 4.1 mmol/L (3.5-5.1)
[2017-11-24 11:42] LABS: GLUCOMETER DEV NAME(LOC) 5N 1N; GLUCOSE,POINT OF CARE 126 MG/DL (70-110)
[2017-11-24] MEDS ORDERED: BUPIVACAINE HCL/PF 0.5% 30 ML VIAL ONE (11:47)
[2017-11-24] MEDS ORDERED: CeFAZolin 2 GM/DEXTROSE 50 ML IV ONE (12:07)
[2017-11-24 12:38] LABS: GLUCOMETER DEV NAME(LOC) 5N 2S; GLUCOSE,POINT OF CARE 171 MG/DL (70-110)
[2017-11-24 12:38] LABS: GLUCOMETER DEV NAME(LOC) 5N 2S; GLUCOSE,POINT OF CARE 193 MG/DL (70-110)
[2017-11-24 12:38] LABS: GLUCOMETER DEV NAME(LOC) 5N 2S; GLUCOSE,POINT OF CARE 133 MG/DL (70-110)
[2017-11-24 12:38] LABS: GLUCOMETER DEV NAME(LOC) 5N 2S; GLUCOSE,POINT OF CARE 141 MG/DL (70-110)
[2017-11-24 12:39] LABS: GLUCOMETER DEV NAME(LOC) 5N 2S; GLUCOSE,POINT OF CARE 124 MG/DL (70-110)
[2017-11-24 12:39] LABS: GLUCOMETER DEV NAME(LOC) 5N 2S; GLUCOSE,POINT OF CARE 118 MG/DL (70-110)
[2017-11-24 15:22] VITALS: BP 90/46
[2017-11-24] MEDS ORDERED: HEPARIN SODIUM,PORCINE 1,000 UNITS/ML VIAL IVP ONE (17:07)
[2017-11-24 17:47] LABS: GLUCOMETER DEV NAME(LOC) 5N 1N; GLUCOSE,POINT OF CARE 149 MG/DL (70-110)
[2017-11-24 17:47] LABS: GLUCOMETER DEV NAME(LOC) 5N 1N; GLUCOSE,POINT OF CARE 136 MG/DL (70-110)
[2017-11-24 19:46] VITALS: BP 153/76
[2017-11-24] MEDS: TAMSULOSIN HCL 0.4 MG CAPSULE PO SCH (20:33)
[2017-11-24 23:33] VITALS: BP 148/74
[2017-11-25] MEDS: HYDROCODONE/ACETAMINOPHEN 5-325 MG TABLET PO PRN (00:48)
[2017-11-25 04:08] VITALS: BP 128/76
[2017-11-25] MEDS ORDERED: NEOSTIGMINE METHYLSULFATE 1 MG/ML 10 ML VIAL IVP ONE (05:30)
[2017-11-25] MEDS ORDERED: LIDOCAINE HCL/PF 2% 5 ML VIAL IM ONE (05:30)
[2017-11-25] MEDS ORDERED: PROPOFOL 1% 20 ML VIAL IVP ONE (05:30)
[2017-11-25] MEDS ORDERED: ROCURONIUM BROMIDE 10 MG/ML 5 ML VIAL IVP ONE (05:30)
[2017-11-25] MEDS ORDERED: ESMOLOL HCL 10 MG/ML 10 ML VIAL IVP ONE (05:30)
[2017-11-25] MEDS ORDERED: GLYCOPYRROLATE 0.2 MG/ML VIAL IM ONE (05:30)
[2017-11-25] MEDS ORDERED: FentaNYL CITRATE-PF 100 MCG/2 ML VIAL IVP ONE (05:30)
[2017-11-25 06:29] LABS: BASOPHILS % (AUTO) 0.8 % (0.0-2.0); EOSINOPHILS % (AUTO) 1.9 % (1.0-6.0); HEMATOCRIT 35.2 % (41-53); HEMOGLOBIN 11.7 g/dL (13.5-17.5); LYMPHOCYTES # (AUTO) 1.5 K/uL (1.0-4.8); LYMPHOCYTES % (AUTO) 20.5 % (22.0-44.0); MEAN CORPUSCULAR HEMOGLOBIN 30.6 pg (26.0-34.0); MEAN CORPUSCULAR HGB CONC 33.3 G/dL (31.0-37.0); MEAN CORPUSCULAR VOLUME 92 fL (80-100); MONOCYTES # (AUTO) 0.8 K/uL (0.1-1.0); MONOCYTES % (AUTO) 11.3 % (2.0-9.0); NEUTROPHILS # (AUTO) 4.9 K/uL (1.8-7.7); NEUTROPHILS % (AUTO) 65.5 % (40.0-70.0); PLATELET COUNT (AUTO) 207 K/uL (150-450); RED BLOOD CELL COUNT(AUTO) 3.83 MIL/uL (4.50-5.90); RED CELL DISTRIBUTION WIDTH 14.9 % (11.5-14.5)
[2017-11-25 07:03] LABS: ALBUMIN 3.1 g/dL (3.4-5.0); BILIRUBIN,TOTAL 0.4 mg/dL (0.1-1.0); CALCIUM, TOTAL 8.5 mg/dL (8.8-10.5); CREATININE 3.94 mg/dL (0.60-1.30); MAGNESIUM 1.9 mg/dL (1.80-2.40); POTASSIUM 4.2 mmol/L (3.5-5.1)
[2017-11-25 07:04] VITALS: BP 142/80
[2017-11-25] MEDS ORDERED: HEPARIN SODIUM,PORCINE 1,000 UNITS/ML VIAL IVP ONE ×3 (08:45→17:24)
[2017-11-25] MEDS: DOCUSATE SODIUM 100 MG CAPSULE PO SCH ×2 (09:37→21:07)
[2017-11-25] MEDS: PANTOPRAZOLE SODIUM 40 MG/VIAL IVP SCH (09:37)
[2017-11-25] MEDS: FERROUS SULFATE 325 MG EC TABLET PO SCH (09:37)
[2017-11-25] MEDS: CALCITRIOL 0.25 MCG CAPSULE PO SCH (09:37)
[2017-11-25 11:15] VITALS: BP 157/97
[2017-11-25] MEDS: CARVEDILOL 12.5 MG TABLET PO SCH ×2 (13:09→21:07)
[2017-11-25] MEDS: LISINOPRIL 10 MG TABLET PO SCH (13:09)
[2017-11-25 13:18] LABS: GLUCOMETER DEV NAME(LOC) 5N 1N; GLUCOSE,POINT OF CARE 173 MG/DL (70-110)
[2017-11-25 13:18] LABS: GLUCOMETER DEV NAME(LOC) 5N 1N; GLUCOSE,POINT OF CARE 148 MG/DL (70-110)
[2017-11-25 13:18] LABS: GLUCOMETER DEV NAME(LOC) 5N 1N; GLUCOSE,POINT OF CARE 138 MG/DL (70-110)
[2017-11-25 15:44] VITALS: BP 147/89
[2017-11-25] MEDS: INSULIN ASPART 100 UNITS/ML - NON-FORMULARY SQ PRN (17:34)
[2017-11-25 20:14] VITALS: BP 142/90
[2017-11-25] MEDS: APIXABAN 5 MG TABLET PO SCH (21:00)
[2017-11-25] MEDS: TAMSULOSIN HCL 0.4 MG CAPSULE PO SCH (21:07)
[2017-11-25 23:52] VITALS: BP 156/90
[2017-11-26 05:31] VITALS: BP 147/95
[2017-11-26] MEDS: INSULIN ASPART 100 UNITS/ML - NON-FORMULARY SQ PRN ×2 (06:35→18:23)
[2017-11-26 06:42] LABS: BASOPHILS % (AUTO) 0.8 % (0.0-2.0); HEMATOCRIT 35.2 % (41-53); HEMOGLOBIN 11.7 g/dL (13.5-17.5); LYMPHOCYTES # (AUTO) 1.6 K/uL (1.0-4.8); LYMPHOCYTES % (AUTO) 24.2 % (22.0-44.0); MEAN CORPUSCULAR HEMOGLOBIN 30.9 pg (26.0-34.0); MEAN CORPUSCULAR HGB CONC 33.4 G/dL (31.0-37.0); MEAN CORPUSCULAR VOLUME 92 fL (80-100); MONOCYTES # (AUTO) 0.8 K/uL (0.1-1.0); MONOCYTES % (AUTO) 12.5 % (2.0-9.0); NEUTROPHILS # (AUTO) 3.9 K/uL (1.8-7.7); NEUTROPHILS % (AUTO) 58.5 % (40.0-70.0); PLATELET COUNT (AUTO) 191 K/uL (150-450); RED CELL DISTRIBUTION WIDTH 15.2 % (11.5-14.5)
[2017-11-26 07:14] LABS: ALBUMIN 3.1 g/dL (3.4-5.0); BILIRUBIN,TOTAL 0.3 mg/dL (0.1-1.0); CREATININE 4.39 mg/dL (0.60-1.30); MAGNESIUM 1.9 mg/dL (1.80-2.40); POTASSIUM 4.2 mmol/L (3.5-5.1)
[2017-11-26 07:20] LABS: CALCIUM, TOTAL 8.4 mg/dL (8.8-10.5)
[2017-11-26 07:40] VITALS: BP 121/82
[2017-11-26] MEDS: FERROUS SULFATE 325 MG EC TABLET PO SCH (07:47)
[2017-11-26] MEDS: DOCUSATE SODIUM 100 MG CAPSULE PO SCH ×2 (07:47→20:14)
[2017-11-26] MEDS: APIXABAN 5 MG TABLET PO SCH ×2 (07:47→20:13)
[2017-11-26] MEDS: CALCITRIOL 0.25 MCG CAPSULE PO SCH (07:47)
[2017-11-26] MEDS: PANTOPRAZOLE SODIUM 40 MG/VIAL IVP SCH (07:47)
[2017-11-26] MEDS: EPOETIN ALFA 10,000 UNITS/ML VIAL SQ SCH (07:48)
[2017-11-26 11:28] LABS: GLUCOMETER DEV NAME(LOC) 5N 1N; GLUCOSE,POINT OF CARE 150 MG/DL (70-110)
[2017-11-26 11:28] LABS: GLUCOMETER DEV NAME(LOC) 5N 1N; GLUCOSE,POINT OF CARE 141 MG/DL (70-110)
[2017-11-26 11:47] VITALS: BP 152/87
[2017-11-26] MEDS: CARVEDILOL 12.5 MG TABLET PO SCH ×2 (12:46→20:13)
[2017-11-26] MEDS: LISINOPRIL 10 MG TABLET PO SCH (12:46)
[2017-11-26 15:27] VITALS: BP 133/74
[2017-11-26 20:02] VITALS: BP 138/88
[2017-11-26] MEDS: TAMSULOSIN HCL 0.4 MG CAPSULE PO SCH (20:13)
[2017-11-26 23:07] VITALS: BP 152/95
[2017-11-27 04:35] VITALS: BP 151/93
[2017-11-27 06:49] LABS: BASOPHILS % (AUTO) 0.8 % (0.0-2.0); EOSINOPHILS % (AUTO) 4.2 % (1.0-6.0); HEMOGLOBIN 11.5 g/dL (13.5-17.5); LYMPHOCYTES # (AUTO) 1.7 K/uL (1.0-4.8); LYMPHOCYTES % (AUTO) 28.4 % (22.0-44.0); MEAN CORPUSCULAR HEMOGLOBIN 31.2 pg (26.0-34.0); MEAN CORPUSCULAR HGB CONC 33.8 G/dL (31.0-37.0); MEAN CORPUSCULAR VOLUME 92 fL (80-100); MONOCYTES # (AUTO) 0.7 K/uL (0.1-1.0); MONOCYTES % (AUTO) 11.1 % (2.0-9.0); NEUTROPHILS # (AUTO) 3.4 K/uL (1.8-7.7); NEUTROPHILS % (AUTO) 55.5 % (40.0-70.0); PLATELET COUNT (AUTO) 201 K/uL (150-450); RED BLOOD CELL COUNT(AUTO) 3.68 MIL/uL (4.50-5.90); RED CELL DISTRIBUTION WIDTH 15.1 % (11.5-14.5)
[2017-11-27 07:06] VITALS: BP 147/95
[2017-11-27 07:20] LABS: BILIRUBIN,TOTAL 0.3 mg/dL (0.1-1.0); CALCIUM, TOTAL 8.2 mg/dL (8.8-10.5); CREATININE 5.21 mg/dL (0.60-1.30); POTASSIUM 4.3 mmol/L (3.5-5.1); TOTAL PROTEIN, SERUM 5.8 g/dL (6.4-8.2)
[2017-11-27] MEDS: APIXABAN 5 MG TABLET PO SCH ×2 (09:18→21:31)
[2017-11-27] MEDS: PANTOPRAZOLE SODIUM 40 MG/VIAL IVP SCH (09:18)
[2017-11-27] MEDS: CALCITRIOL 0.25 MCG CAPSULE PO SCH (09:18)
[2017-11-27] MEDS: FERROUS SULFATE 325 MG EC TABLET PO SCH (09:18)
[2017-11-27] MEDS: DOCUSATE SODIUM 100 MG CAPSULE PO SCH ×2 (09:19→21:31)
[2017-11-27 11:35] VITALS: BP 148/88
[2017-11-27] MEDS: CARVEDILOL 12.5 MG TABLET PO SCH ×2 (11:48→21:31)
[2017-11-27] MEDS: LISINOPRIL 10 MG TABLET PO SCH (11:48)
[2017-11-27] MEDS: INSULIN ASPART 100 UNITS/ML - NON-FORMULARY SQ PRN ×3 (12:13→21:33)
[2017-11-27 16:00] VITALS: BP 140/78
[2017-11-27 16:13] LABS: GLUCOMETER DEV NAME(LOC) 5S 2N; GLUCOSE,POINT OF CARE 172 MG/DL (70-110)
[2017-11-27 16:13] LABS: GLUCOMETER DEV NAME(LOC) 5S 2N; GLUCOSE,POINT OF CARE 128 MG/DL (70-110)
[2017-11-27 16:14] LABS: GLUCOMETER DEV NAME(LOC) 5N 2S; GLUCOSE,POINT OF CARE 159 MG/DL (70-110)
[2017-11-27 16:14] LABS: GLUCOMETER DEV NAME(LOC) 5S 2N; GLUCOSE,POINT OF CARE 198 MG/DL (70-110)
[2017-11-27 16:14] LABS: GLUCOMETER DEV NAME(LOC) 5S 2N; GLUCOSE,POINT OF CARE 134 MG/DL (70-110)
[2017-11-27 16:14] LABS: GLUCOMETER DEV NAME(LOC) 5S 2N; GLUCOSE,POINT OF CARE 127 MG/DL (70-110)
[2017-11-27] MEDS ORDERED: HEPARIN SODIUM,PORCINE 5,000 UNITS/ML VIAL SQ ONE (16:50)
[2017-11-27 20:11] VITALS: BP 158/63
[2017-11-27 21:02] LABS: GLUCOMETER DEV NAME(LOC) PVLAB133; GLUCOSE,POINT OF CARE 184 MG/DL (70-110)
[2017-11-27] MEDS: TAMSULOSIN HCL 0.4 MG CAPSULE PO SCH (21:31)
[2017-11-28] VITALS (7 sets, daily range): BP systolic 130–160; BP diastolic 70–96
[2017-11-28 07:53] LABS: GLUCOMETER DEV NAME(LOC) 5S 2N; GLUCOSE,POINT OF CARE 170 MG/DL (70-110)
[2017-11-28] MEDS: PANTOPRAZOLE SODIUM 40 MG/VIAL IVP SCH (08:25)
[2017-11-28] MEDS: EPOETIN ALFA 10,000 UNITS/ML VIAL SQ SCH (08:26)
[2017-11-28] MEDS: LISINOPRIL 10 MG TABLET PO SCH (08:26)
[2017-11-28] MEDS: FERROUS SULFATE 325 MG EC TABLET PO SCH (08:26)
[2017-11-28] MEDS: CALCITRIOL 0.25 MCG CAPSULE PO SCH (08:27)
[2017-11-28] MEDS: CARVEDILOL 12.5 MG TABLET PO SCH ×2 (08:27→21:10)
[2017-11-28] MEDS: APIXABAN 5 MG TABLET PO SCH ×2 (08:27→21:10)
[2017-11-28] MEDS: DOCUSATE SODIUM 100 MG CAPSULE PO SCH ×2 (08:27→21:10)
[2017-11-28 08:47] LABS: GLUCOMETER DEV NAME(LOC) PVLAB133; GLUCOSE,POINT OF CARE 127 MG/DL (70-110)
[2017-11-28] MEDS: INSULIN ASPART 100 UNITS/ML - NON-FORMULARY SQ PRN ×2 (18:27→21:17)
[2017-11-28 19:52] LABS: GLUCOMETER DEV NAME(LOC) PVLAB133; GLUCOSE,POINT OF CARE 127 MG/DL (70-110)
[2017-11-28 19:53] LABS: GLUCOMETER DEV NAME(LOC) PVLAB133; GLUCOSE,POINT OF CARE 191 MG/DL (70-110)
[2017-11-28] MEDS: TAMSULOSIN HCL 0.4 MG CAPSULE PO SCH (21:10)
[2017-11-29] VITALS (7 sets, daily range): BP systolic 136–154; BP diastolic 71–100
[2017-11-29 05:52] LABS: GLUCOMETER DEV NAME(LOC) PVLAB133; GLUCOSE,POINT OF CARE 141 MG/DL (70-110)
[2017-11-29] MEDS: FERROUS SULFATE 325 MG EC TABLET PO SCH (08:24)
[2017-11-29] MEDS: PANTOPRAZOLE SODIUM 40 MG/VIAL IVP SCH (08:24)
[2017-11-29] MEDS: DOCUSATE SODIUM 100 MG CAPSULE PO SCH ×2 (08:24→20:34)
[2017-11-29] MEDS: CALCITRIOL 0.25 MCG CAPSULE PO SCH (08:25)
[2017-11-29 08:32] LABS: GLUCOMETER DEV NAME(LOC) PVLAB133; GLUCOSE,POINT OF CARE 116 MG/DL (70-110)
[2017-11-29] MEDS: LISINOPRIL 10 MG TABLET PO SCH (09:34)
[2017-11-29] MEDS: APIXABAN 5 MG TABLET PO SCH ×2 (09:34→20:34)
[2017-11-29] MEDS: CARVEDILOL 12.5 MG TABLET PO SCH ×2 (09:34→20:35)
[2017-11-29 09:35] LABS: BASOPHILS % (AUTO) 1.2 % (0.0-2.0); EOSINOPHILS % (AUTO) 4.7 % (1.0-6.0); HEMATOCRIT 36.2 % (41-53); HEMOGLOBIN 12.1 g/dL (13.5-17.5); LYMPHOCYTES # (AUTO) 1.5 K/uL (1.0-4.8); LYMPHOCYTES % (AUTO) 25.4 % (22.0-44.0); MEAN CORPUSCULAR HEMOGLOBIN 31.1 pg (26.0-34.0); MEAN CORPUSCULAR HGB CONC 33.5 G/dL (31.0-37.0); MEAN CORPUSCULAR VOLUME 93 fL (80-100); MONOCYTES # (AUTO) 0.5 K/uL (0.1-1.0); MONOCYTES % (AUTO) 9.5 % (2.0-9.0); NEUTROPHILS # (AUTO) 3.4 K/uL (1.8-7.7); NEUTROPHILS % (AUTO) 59.2 % (40.0-70.0); PLATELET COUNT (AUTO) 205 K/uL (150-450); RED BLOOD CELL COUNT(AUTO) 3.89 MIL/uL (4.50-5.90); RED CELL DISTRIBUTION WIDTH 15.2 % (11.5-14.5)
[2017-11-29 09:55] LABS: ALBUMIN 3.1 g/dL (3.4-5.0); BILIRUBIN,TOTAL 0.3 mg/dL (0.1-1.0); CALCIUM, TOTAL 8.6 mg/dL (8.8-10.5); CREATININE 5.07 mg/dL (0.60-1.30); MAGNESIUM 2.2 mg/dL (1.80-2.40); TOTAL PROTEIN, SERUM 5.9 g/dL (6.4-8.2)
[2017-11-29] MEDS ORDERED: SODIUM CHLORIDE 0.9% 250 ML IV ONE (11:57)
[2017-11-29 12:08] LABS: GLUCOMETER DEV NAME(LOC) PVLAB133; GLUCOSE,POINT OF CARE 216 MG/DL (70-110)
[2017-11-29] MEDS: INSULIN ASPART 100 UNITS/ML - NON-FORMULARY SQ PRN ×2 (12:10→20:36)
[2017-11-29 19:52] LABS: GLUCOMETER DEV NAME(LOC) PVLAB133; GLUCOSE,POINT OF CARE 138 MG/DL (70-110)
[2017-11-29] MEDS: TAMSULOSIN HCL 0.4 MG CAPSULE PO SCH (20:34)
[2017-11-30 02:57] LABS: GLUCOMETER DEV NAME(LOC) 5S 2N; GLUCOSE,POINT OF CARE 222 MG/DL (70-110)
[2017-11-30 04:29] VITALS: BP 146/93
[2017-11-30 07:12] VITALS: BP 142/90
[2017-11-30] MEDS: DOCUSATE SODIUM 100 MG CAPSULE PO SCH ×2 (08:19→21:25)
[2017-11-30] MEDS: PANTOPRAZOLE SODIUM 40 MG/VIAL IVP SCH (08:19)
[2017-11-30] MEDS: CALCITRIOL 0.25 MCG CAPSULE PO SCH (08:19)
[2017-11-30] MEDS: APIXABAN 5 MG TABLET PO SCH ×2 (08:19→21:25)
[2017-11-30] MEDS: LISINOPRIL 10 MG TABLET PO SCH (08:19)
[2017-11-30] MEDS: FERROUS SULFATE 325 MG EC TABLET PO SCH (08:19)
[2017-11-30] MEDS: CARVEDILOL 12.5 MG TABLET PO SCH ×2 (08:19→21:25)
[2017-11-30 11:27] VITALS: BP 144/93
[2017-11-30] MEDS: INSULIN ASPART 100 UNITS/ML - NON-FORMULARY SQ PRN ×3 (12:20→21:26)
[2017-11-30 15:07] VITALS: BP 150/99
[2017-11-30 19:48] VITALS: BP 153/73
[2017-11-30] MEDS: TAMSULOSIN HCL 0.4 MG CAPSULE PO SCH (21:25)
[2017-11-30 23:25] VITALS: BP 144/90
[2017-12-01 03:12] LABS: GLUCOMETER DEV NAME(LOC) PVLAB133; GLUCOSE,POINT OF CARE 156 MG/DL (70-110)
[2017-12-01 03:12] LABS: GLUCOMETER DEV NAME(LOC) PVLAB133; GLUCOSE,POINT OF CARE 136 MG/DL (70-110)
[2017-12-01 04:03] LABS: GLUCOMETER DEV NAME(LOC) 5S 2N; GLUCOSE,POINT OF CARE 180 MG/DL (70-110)
[2017-12-01 04:03] LABS: GLUCOMETER DEV NAME(LOC) 5S 2N; GLUCOSE,POINT OF CARE 204 MG/DL (70-110)
[2017-12-01 04:44] VITALS: BP 150/93
[2017-12-01] MEDS: INSULIN ASPART 100 UNITS/ML - NON-FORMULARY SQ PRN ×3 (06:37→20:30)
[2017-12-01 07:09] VITALS: BP 144/89
[2017-12-01] MEDS: CARVEDILOL 12.5 MG TABLET PO SCH ×2 (07:23→20:29)
[2017-12-01] MEDS: LISINOPRIL 10 MG TABLET PO SCH (07:23)
[2017-12-01] MEDS: APIXABAN 5 MG TABLET PO SCH ×2 (07:23→20:29)
[2017-12-01] MEDS: PANTOPRAZOLE SODIUM 40 MG/VIAL IVP SCH (07:23)
[2017-12-01] MEDS: DOCUSATE SODIUM 100 MG CAPSULE PO SCH ×2 (07:23→20:29)
[2017-12-01] MEDS: FERROUS SULFATE 325 MG EC TABLET PO SCH (07:23)
[2017-12-01] MEDS: CALCITRIOL 0.25 MCG CAPSULE PO SCH (07:23)
[2017-12-01] MEDS: EPOETIN ALFA 10,000 UNITS/ML VIAL SQ SCH (07:28)
[2017-12-01 11:03] VITALS: BP 156/106
[2017-12-01 11:12] LABS: GLUCOMETER DEV NAME(LOC) 5N 1P; GLUCOSE,POINT OF CARE 172 MG/DL (70-110)
[2017-12-01 16:21] VITALS: BP 149/90
[2017-12-01] MEDS: TAMSULOSIN HCL 0.4 MG CAPSULE PO SCH (20:28)
[2017-12-01 20:30] VITALS: BP 143/90
[2017-12-01 23:51] VITALS: BP 153/97
[2017-12-02] VITALS (7 sets, daily range): BP systolic 121–163; BP diastolic 68–106
[2017-12-02 07:02] LABS: GLUCOMETER DEV NAME(LOC) 5N 1P; GLUCOSE,POINT OF CARE 163 MG/DL (70-110)
[2017-12-02 07:02] LABS: GLUCOMETER DEV NAME(LOC) 5N 1P; GLUCOSE,POINT OF CARE 133 MG/DL (70-110)
[2017-12-02] MEDS: CALCITRIOL 0.25 MCG CAPSULE PO SCH (08:19)
[2017-12-02] MEDS: DOCUSATE SODIUM 100 MG CAPSULE PO SCH ×2 (08:19→20:54)
[2017-12-02] MEDS: PANTOPRAZOLE SODIUM 40 MG/VIAL IVP SCH (08:19)
[2017-12-02] MEDS: CARVEDILOL 12.5 MG TABLET PO SCH ×2 (08:19→20:54)
[2017-12-02] MEDS: LISINOPRIL 10 MG TABLET PO SCH (08:19)
[2017-12-02] MEDS: APIXABAN 5 MG TABLET PO SCH ×2 (08:19→20:54)
[2017-12-02] MEDS: FERROUS SULFATE 325 MG EC TABLET PO SCH (08:19)
[2017-12-02] MEDS: INSULIN ASPART 100 UNITS/ML - NON-FORMULARY SQ PRN ×3 (12:39→21:54)
[2017-12-02] MEDS: TAMSULOSIN HCL 0.4 MG CAPSULE PO SCH (20:54)
[2017-12-02 22:57] LABS: GLUCOMETER DEV NAME(LOC) 5S 2N; GLUCOSE,POINT OF CARE 148 MG/DL (70-110)
[2017-12-02 22:57] LABS: GLUCOMETER DEV NAME(LOC) 5N 1P; GLUCOSE,POINT OF CARE 175 MG/DL (70-110)
[2017-12-02 22:57] LABS: GLUCOMETER DEV NAME(LOC) 5S 2N; GLUCOSE,POINT OF CARE 144 MG/DL (70-110)
[2017-12-02 22:58] LABS: GLUCOMETER DEV NAME(LOC) 5S 2N; GLUCOSE,POINT OF CARE 230 MG/DL (70-110)
[2017-12-02 22:58] LABS: GLUCOMETER DEV NAME(LOC) 5N 1P; GLUCOSE,POINT OF CARE 154 MG/DL (70-110)
[2017-12-03 05:36] VITALS: BP 156/91
[2017-12-03 06:40] LABS: BASOPHILS % (AUTO) 1.2 % (0.0-2.0); EOSINOPHILS % (AUTO) 4.7 % (1.0-6.0); HEMATOCRIT 36.2 % (41-53); HEMOGLOBIN 12.3 g/dL (13.5-17.5); LYMPHOCYTES # (AUTO) 1.7 K/uL (1.0-4.8); LYMPHOCYTES % (AUTO) 25.8 % (22.0-44.0); MEAN CORPUSCULAR HEMOGLOBIN 31.4 pg (26.0-34.0); MEAN CORPUSCULAR VOLUME 92 fL (80-100); MONOCYTES # (AUTO) 0.7 K/uL (0.1-1.0); MONOCYTES % (AUTO) 10.6 % (2.0-9.0); NEUTROPHILS # (AUTO) 3.8 K/uL (1.8-7.7); NEUTROPHILS % (AUTO) 57.7 % (40.0-70.0); PLATELET COUNT (AUTO) 231 K/uL (150-450); RED BLOOD CELL COUNT(AUTO) 3.93 MIL/uL (4.50-5.90); RED CELL DISTRIBUTION WIDTH 16.7 % (11.5-14.5)
[2017-12-03 06:55] LABS: CALCIUM, TOTAL 8.4 mg/dL (8.8-10.5); CREATININE 5.3 mg/dL (0.60-1.30); POTASSIUM 4.2 mmol/L (3.5-5.1)
[2017-12-03 07:10] VITALS: BP 171/103
[2017-12-03 08:12] LABS: GLUCOMETER DEV NAME(LOC) 5N 1P; GLUCOSE,POINT OF CARE 138 MG/DL (70-110)
[2017-12-03] MEDS: LISINOPRIL 20 MG TABLET PO SCH (08:49)
[2017-12-03] MEDS: FERROUS SULFATE 325 MG EC TABLET PO SCH (08:49)
[2017-12-03] MEDS: APIXABAN 5 MG TABLET PO SCH ×2 (08:49→21:04)
[2017-12-03] MEDS: DOCUSATE SODIUM 100 MG CAPSULE PO SCH ×2 (08:49→21:04)
[2017-12-03] MEDS: CALCITRIOL 0.25 MCG CAPSULE PO SCH (08:49)
[2017-12-03] MEDS: PANTOPRAZOLE SODIUM 40 MG/VIAL IVP SCH (08:50)
[2017-12-03] MEDS: EPOETIN ALFA 10,000 UNITS/ML VIAL SQ SCH (08:56)
[2017-12-03] MEDS: CARVEDILOL 25 MG TABLET PO SCH ×2 (10:34→21:04)
[2017-12-03 11:16] VITALS: BP 182/118
[2017-12-03] MEDS: HydrALAZINE HCL 20 MG/ML VIAL IVP PRN (11:54)
[2017-12-03] MEDS: INSULIN ASPART 100 UNITS/ML - NON-FORMULARY SQ PRN ×3 (12:00→21:04)
[2017-12-03 15:50] VITALS: BP 148/107
[2017-12-03 19:38] VITALS: BP 148/81
[2017-12-03] MEDS: TAMSULOSIN HCL 0.4 MG CAPSULE PO SCH (21:04)
[2017-12-04 00:02] VITALS: BP 132/75
[2017-12-04 04:00] VITALS: BP 155/98
[2017-12-04 07:13] VITALS: BP 157/98
[2017-12-04] MEDS: CARVEDILOL 25 MG TABLET PO SCH ×2 (08:21→20:38)
[2017-12-04] MEDS: APIXABAN 5 MG TABLET PO SCH ×2 (08:21→20:38)
[2017-12-04] MEDS: DOCUSATE SODIUM 100 MG CAPSULE PO SCH ×2 (08:21→20:38)
[2017-12-04] MEDS: CALCITRIOL 0.25 MCG CAPSULE PO SCH (08:21)
[2017-12-04] MEDS: FERROUS SULFATE 325 MG EC TABLET PO SCH (08:21)
[2017-12-04] MEDS: PANTOPRAZOLE SODIUM 40 MG/VIAL IVP SCH (08:21)
[2017-12-04] MEDS: LISINOPRIL 20 MG TABLET PO SCH (08:21)
[2017-12-04 11:46] VITALS: BP 173/99
[2017-12-04] MEDS: INSULIN ASPART 100 UNITS/ML - NON-FORMULARY SQ PRN ×3 (13:17→20:41)
[2017-12-04 14:04] LABS: GLUCOMETER DEV NAME(LOC) 5S 1M; GLUCOSE,POINT OF CARE 199 MG/DL (70-110)
[2017-12-04 14:05] LABS: GLUCOMETER DEV NAME(LOC) 5N 1P; GLUCOSE,POINT OF CARE 182 MG/DL (70-110)
[2017-12-04 14:05] LABS: GLUCOMETER DEV NAME(LOC) 5N 1P; GLUCOSE,POINT OF CARE 192 MG/DL (70-110)
[2017-12-04 14:13] LABS: GLUCOMETER DEV NAME(LOC) 5N 1P; GLUCOSE,POINT OF CARE 185 MG/DL (70-110)
[2017-12-04 15:10] VITALS: BP 160/99
[2017-12-04 19:19] VITALS: BP 164/101
[2017-12-04] MEDS: TAMSULOSIN HCL 0.4 MG CAPSULE PO SCH (20:38)
[2017-12-05 00:18] VITALS: BP 161/102
[2017-12-05 05:04] VITALS: BP 167/100
[2017-12-05] MEDS: INSULIN ASPART 100 UNITS/ML - NON-FORMULARY SQ PRN ×2 (06:25→12:19)
[2017-12-05 07:33] VITALS: BP 149/95
[2017-12-05] MEDS ORDERED: SODIUM CHLORIDE 0.9% 1,000 ML IV ONE (10:12)
[2017-12-05] MEDS ORDERED: APIX5TAB PO (11:07)
[2017-12-05] MEDS ORDERED: SITA25 PO (11:08)
[2017-12-05 11:16] LABS: CALCIUM, TOTAL 8.2 mg/dL (8.8-10.5); CREATININE 4.21 mg/dL (0.60-1.30); POTASSIUM 3.7 mmol/L (3.5-5.1)
[2017-12-05 11:40] VITALS: BP 160/112
[2017-12-05 11:43] LABS: GLUCOMETER DEV NAME(LOC) 5S 1M; GLUCOSE,POINT OF CARE 157 MG/DL (70-110)
[2017-12-05 12:57] LABS: GLUCOMETER DEV NAME(LOC) 5N 1P; GLUCOSE,POINT OF CARE 208 MG/DL (70-110)
[2017-12-05 12:58] LABS: GLUCOMETER DEV NAME(LOC) 5N 1P; GLUCOSE,POINT OF CARE 199 MG/DL (70-110)
[2017-12-05] MEDS: PANTOPRAZOLE SODIUM 40 MG/VIAL IVP SCH (14:37)
[2017-12-05] MEDS: FERROUS SULFATE 325 MG EC TABLET PO SCH (14:39)
[2017-12-05] MEDS: DOCUSATE SODIUM 100 MG CAPSULE PO SCH (14:39)
[2017-12-05] MEDS: LISINOPRIL 20 MG TABLET PO SCH (14:39)
[2017-12-05] MEDS: CARVEDILOL 25 MG TABLET PO SCH (14:39)
[2017-12-05] MEDS: APIXABAN 5 MG TABLET PO SCH (14:39)
[2017-12-05] MEDS: CALCITRIOL 0.25 MCG CAPSULE PO SCH (14:39)
[2017-12-05 15:38] VITALS: BP 144/98
== END 2017-12-05 16:35 | disposition home or self-care (01) | DRG 291 ==
LOC: EMS 11:44 → 5S 14:20 → ICU 11-15 20:30 → 5N 11-16 18:05 → 5S 11-22 21:30
PROVIDERS: ADMIT Hospitalist; ATTEND Hospitalist
PROC: 06HM33Z Insertion of Infusion Device into Right Femoral Vein, Percutaneous Approach (ICD-10-PCS; principal; 2017-11-16)
PROC: 5A1D70Z Performance of Urinary Filtration, Intermittent, Less than 6 Hours Per Day (ICD-10-PCS; 2017-11-16)
PROC: 5A1D70Z Performance of Urinary Filtration, Intermittent, Less than 6 Hours Per Day (ICD-10-PCS; 2017-11-17)
PROC: 5A1D70Z Performance of Urinary Filtration, Intermittent, Less than 6 Hours Per Day (ICD-10-PCS; 2017-11-18)
PROC: 5A1D70Z Performance of Urinary Filtration, Intermittent, Less than 6 Hours Per Day (ICD-10-PCS; 2017-11-20)
PROC: 5A1D70Z Performance of Urinary Filtration, Intermittent, Less than 6 Hours Per Day (ICD-10-PCS; 2017-11-22)
PROC: 5A1D70Z Performance of Urinary Filtration, Intermittent, Less than 6 Hours Per Day (ICD-10-PCS; 2017-11-23)
PROC: 5A1D70Z Performance of Urinary Filtration, Intermittent, Less than 6 Hours Per Day (ICD-10-PCS; 2017-11-24)
PROC: 0WHG33Z Insertion of Infusion Device into Peritoneal Cavity, Percutaneous Approach (ICD-10-PCS; 2017-11-24)
PROC: 5A1D70Z Performance of Urinary Filtration, Intermittent, Less than 6 Hours Per Day (ICD-10-PCS; 2017-11-26)
PROC: 5A1D70Z Performance of Urinary Filtration, Intermittent, Less than 6 Hours Per Day (ICD-10-PCS; 2017-12-04)
PROC: 5A1D70Z Performance of Urinary Filtration, Intermittent, Less than 6 Hours Per Day (ICD-10-PCS; 2017-12-05)
DX: I13.2 Hypertensive heart and chronic kidney disease with heart failure and with stage 5 chronic kidney disease, or end stage renal disease (principal); I50.41 Acute combined systolic (congestive) and diastolic (congestive) heart failure; I47.2 Ventricular tachycardia; N17.9 Acute kidney failure, unspecified; I48.91 Unspecified atrial fibrillation; E11.22 Type 2 diabetes mellitus with diabetic chronic kidney disease; I48.92 Unspecified atrial flutter; E87.5 Hyperkalemia; E11.65 Type 2 diabetes mellitus with hyperglycemia; N18.6 End stage renal disease; I50.43 Acute on chronic combined systolic (congestive) and diastolic (congestive) heart failure; I42.0 Dilated cardiomyopathy; I42.9 Cardiomyopathy, unspecified; F17.210 Nicotine dependence, cigarettes, uncomplicated; D63.8 Anemia in other chronic diseases classified elsewhere; N40.0 Benign prostatic hyperplasia without lower urinary tract symptoms; Z59.0 Homelessness; Z99.2 Dependence on renal dialysis; Z79.01 Long term (current) use of anticoagulants; Z91.14 Patient's other noncompliance with medication regimen
CPT/HCPCS: 36561; 76937; 80074; 82962; 83735; 86706; 86709; 87081; 87340; 90471; 90935; 93005; 93306; 94640; 96374; 96375; 96376; 99291; 99406; C9113; J0360; J0690; J0885; J1160; J1644; J1940; J2150; J2250; J2405; J2704; J3010; J3490; J7030; J7050; P9047